=== PATIENT | female | born 1990 | race Caucasian/White ===

== ENCOUNTER 2017-08-20 16:35 | Emergency (ER) | payer SELFPAY | END 2017-08-20 17:35 | disposition home or self-care (01) | LOC: D.ER 16:35 | DX: S63.91XA Sprain of unspecified part of right wrist and hand, initial encounter (principal); V43.52XA Car driver injured in collision with other type car in traffic accident, initial encounter; Y93.89 Activity, other specified; Y92.410 Unspecified street and highway as the place of occurrence of the external cause; S16.1XXA Strain of muscle, fascia and tendon at neck level, initial encounter ==